=== PATIENT | male | born 1990 | race Caucasian/White ===

== ENCOUNTER 2023-08-15 10:33 | Emergency (ER) | payer SELFPAY ==
[~2023-08-15] VITALS: Ht 172.7 cm; Wt 80.0 kg
[2023-08-15 10:39] VITALS: O2SAT 96
[2023-08-15] MEDS ORDERED: LORAZEPAM 2MG/ML CPJ IM STA (11:32)
[2023-08-15 11:42] LABS: HEMATOCRIT. 50.5 % (42.0-52.0); MEAN CORPUSCULAR HEMOGLOBIN 31.2 pg (28.0-32.0); MEAN CORPUSCULAR HGB CONC 33.8 g/dL (31.0-37.0); MEAN CORPUSCULAR VOLUME 92.3 fL (80.0-94.0); MEAN PLATELET VOLUME 8.8 fl (7.4-10.4); PLATELET 311 x1000/uL (130-400); RED BLOOD CELL COUNT 5.47 mill/uL (4.7-6.1); RED CELL DISTRIBUTION WIDTH 13.4 % (11.6-14.6); WHITE BLOOD COUNT 18.2 x1000/uL (4.5-11.0)
[2023-08-15] MEDS ORDERED: OLANZAPINE 10 MG/VIAL IM ONE (11:45)
[2023-08-15 11:51] LABS: DIFFERENTIAL COMMENT 1
[2023-08-15 11:56] LABS: CHLORIDE 103 mEq/L (98-107); INDEX HEMOLYSI 1 (1-3); INDEX ICTERIC 1 (1-4); INDEX LIPEMIC 1 (1-3); POTASSIUM 3.6 mEq/L (3.5-5.1); SODIUM 139 mEq/L (136-145)
[2023-08-15 12:11] LABS: ALANINE AMINOTRANSFERASE 222 IU/L (13-61); ALBUMIN 4.3 g/dL (3.4-5.0); ASPARTATE AMINOTRANSFERASE 237 IU/L (15-37); BILIRUBIN TOTAL 1.4 mg/dL (0.1-1.0); CALCIUM 9.7 mg/dL (8.5-10.1); CARBON DIOXIDE 20 mEq/L (21-32); CREATININE 2.1 mg/dL (0.6-1.3); ETHANOL BLOOD < 10 mg/dL (<10); GLUCOSE 147 mg/dL (70-105); PROTEIN TOTAL 8.4 g/dL (6.0-8.3); UREA NITROGEN BLOOD 19 mg/dL (7-21)
[2023-08-15 12:28] LABS: PLATELET ESTIMATE NORMAL
[2023-08-16 03:36] LABS: CLARITY URINE CLOUDY (CLEAR); COLOR URINE DARK YELLOW (YELLOW); GLUCOSE URINE NEGATIVE (NEGATIVE); KETONES URINE 1+ (NEGATIVE); LEUKOCYTE ESTERASE URINE NEGATIVE (NEGATIVE); NITRITE URINE NEGATIVE (NEGATIVE); OCCULT BLOOD URINE 3+ (NEGATIVE); PH URINE 5.5 (4.5-8.0); PROTEIN URINE 2+ (NEGATIVE); SPECIFIC GRAVITY URINE 1.024 (1.005-1.030)
[2023-08-16 03:40] LABS: BACTERIA URINE NONE SEEN; SQUAMOUS EPITHELIAL CELL URINE NONE SEEN /lpf (RARE/1+); YEAST URINE NONE SEEN
[2023-08-16 04:05] LABS: *AMPHETAMINES SCREEN URINE PRESUMTIVE POSITIVE (NEGATIVE); *BARBITURATES SCREEN URINE NEGATIVE (NEGATIVE); *BENZODIAZEPINES SCREEN URINE NEGATIVE (NEGATIVE); *COCAINE SCREEN URINE NEGATIVE (NEGATIVE); CANNABINOID URINE SCREEN PRESUMTIVE POSITIVE (NEGATIVE); ECSTASY MDMA SCREEN URINE CONF.TEST INDICATED (NEGATIVE); OPIATES URINE SCREEN NEGATIVE (NEGATIVE); PHENCYCLIDINE URINE SCREEN NEGATIVE (NEGATIVE)
[2023-08-16 05:13] LABS: RBC URINE 0-2 /hpf (0-2); WBC URINE 0-2 /hpf (0-2)
[2023-08-16 12:00] VITALS: BP 140/80; PULSE 85; RESP 18; TEMP 99.1
== END 2023-08-16 12:35 | disposition home or self-care (01) ==
LOC: ER 10:33
DX: R45.6 Violent behavior (principal)
CPT/HCPCS: 80053; 80320; 85025; 36415; 96372; 99291; 80305; 81003; J3490; J2060; G0480

== ENCOUNTER 2023-09-08 22:57 | Emergency (ER) | payer SELFPAY ==
[~2023-09-08] VITALS: Ht 172.7 cm; Wt 73.0 kg
[2023-09-08 23:15] VITALS: O2SAT 96
[2023-09-08 23:37] LABS: CHLORIDE 99 mEq/L (98-107); INDEX HEMOLYSI 1 (1-3); INDEX ICTERIC 1 (1-4); INDEX LIPEMIC 1 (1-3); POTASSIUM 3.7 mEq/L (3.5-5.1); SODIUM 135 mEq/L (136-145)
[2023-09-08 23:39] LABS: BASOPHILS % 0.3 % (0.0-2.0); EOSINOPHILS % 0.3 % (0.0-5.0); HEMATOCRIT. 43.4 % (42.0-52.0); HEMOGLOBIN. 14.7 g/dL (14.0-18.0); LYMPHOCYTES % 14.7 % (20.0-50.0); MEAN CORPUSCULAR HEMOGLOBIN 30.6 pg (28.0-32.0); MEAN CORPUSCULAR HGB CONC 33.9 g/dL (31.0-37.0); MEAN CORPUSCULAR VOLUME 90.2 fL (80.0-94.0); MEAN PLATELET VOLUME 8.3 fl (7.4-10.4); NEUTROPHILS % 70.7 % (40.0-76.0); PLATELET 250 x1000/uL (130-400); RED BLOOD CELL COUNT 4.81 mill/uL (4.7-6.1); RED CELL DISTRIBUTION WIDTH 13.6 % (11.6-14.6)
[2023-09-08 23:44] LABS: ACETAMINOPHEN <2 ug/mL ug/mL (10-30); ALANINE AMINOTRANSFERASE 147 IU/L (13-61); ALBUMIN 3.8 g/dL (3.4-5.0); ASPARTATE AMINOTRANSFERASE 148 IU/L (15-37); BILIRUBIN TOTAL 1.6 mg/dL (0.1-1.0); CARBON DIOXIDE 26 mEq/L (21-32); ETHANOL BLOOD < 10 mg/dL (<10); GLUCOSE 84 mg/dL (70-105); PROTEIN TOTAL 7.4 g/dL (6.0-8.3); UREA NITROGEN BLOOD 25 mg/dL (7-21)
[2023-09-09 10:15] VITALS: BP 129/72; PULSE 98; RESP 16; TEMP 97.9
== END 2023-09-09 10:24 | disposition home or self-care (01) ==
LOC: ER 22:57
DX: F20.9 Schizophrenia, unspecified (principal)
CPT/HCPCS: 36415; 80053; 80307; 80320; 80329; 85025; 99284; G0480